=== PATIENT | female | born 1955 | race Caucasian/White ===

== ENCOUNTER 2017-05-20 21:21 | Inpatient (IN) | payer OTHER ==
[~2017-05-20] VITALS: Ht 170.2 cm; Wt 91.0 kg
[~2017-05-20 21:21] MED LIST: ADVAIR 100/501 DISK IH; ADVAIR 250/501 DISK IH; ALEVE220 MG PO; AMBIEN10 M1 PO; AMBIEN10 MG PO; ASPIR-MOX IB T325 MG PO; ASPIRIN325 MG PO; CELEXA20 MG PO; CITALOPRAM HBR20 M1 PO; CONTRAVE ER 8-1 EACH PO; CRESTOR10 MG PO; HYDROCHLOROTHIA25 MG PO; LEVOFLOXACIN500 MG PO; MOEXIPRIL HCL7.5 MG PO; PLAVIX75 MG PO; PREDNISONE20 MG PO; PROAIR RESPICL90 MCG IH; PROVENTIL,2.5 MG/3 M IH; TOPAMAX25 MG PO; TOPROL XL25 MG PO; TOPROL XL50 MG PO; ULTRAM50 MG PO; VENTOLIN HFA18 GM IH; WELCHOL625 MG PO; ZYRTEC10 M3 PO
[2017-05-21] MEDS ORDERED: FEOSOL325 MG PO (05:57)
[2017-05-21] MEDS ORDERED: COLACE100 MG PO (05:58)
[2017-05-21 06:01] VITALS: BP 115/74
[2017-05-21 10:32] VITALS: BP 124/71
[2017-05-21 12:30] VITALS: BP 110/61
[2017-05-21 15:54] VITALS: BP 104/59
[2017-05-21 18:00] VITALS: BP 92/59
[2017-05-21 20:46] VITALS: BP 100/61
[2017-05-22 00:10] VITALS: BP 105/55
[2017-05-22 04:12] VITALS: BP 101/61
[2017-05-22 06:57] LABS: HEMATOCRIT 35.1 % (36.0-46.0); MCV 88.4 FL (83-99)
[2017-05-22 07:28] LABS: ANION GAP 8 MEQ/L (2-14); CHLORIDE 104 MEQ/L (99-109); GFR ESTIMATE (CALCULATED) > 59 mL/min/; GLUCOSE 109 mg/dL (70-99); POTASSIUM 3.8 MEQ/L (3.7-5.4); SAMPLE HEMOLYSIS CHECK 0; SAMPLE ICTERIC CHECK 0; SAMPLE LIPEMIA CHECK 0; SODIUM 139 MEQ/L (136-147); UREA NITROGEN (BUN) 14 mg/dL (9-23)
[2017-05-22 08:17] VITALS: BP 113/72
[2017-05-22] MEDS ORDERED: BENADRYL25 MG PO (09:16)
[2017-05-22] MEDS ORDERED: TYLENOL REGULA325 MG PO (09:18)
[2017-05-22] MEDS ORDERED: ELIQUIS2.5 MG PO (09:19)
[2017-05-22] MEDS ORDERED: BISACODYL5 MG PO (09:19)
[2017-05-22] MEDS ORDERED: OXYCODONE HCL5 MG PO (09:19)
[2017-05-22 12:00] VITALS: BP 107/56
[2017-05-22 15:43] VITALS: BP 100/56
[2017-05-22 20:00] VITALS: BP 114/70
[2017-05-23] VITALS: BP 121/64
[2017-05-23 04:00] VITALS: BP 138/67
[2017-05-23 06:25] LABS: HEMATOCRIT 32.1 % (36.0-46.0); MCV 88.4 FL (83-99)
[2017-05-23 08:24] VITALS: BP 134/72
[2017-05-23 12:00] VITALS: BP 139/64
== END 2017-05-23 14:17 | DRG 470 ==
LOC: ENRESERV 21:21 → 2SOUTH 05-21 05:20 → 3WEST 05-21 10:21 → 2SOUTH 05-21 11:45 → 3WEST 05-23 14:17
PROVIDERS: Orthopaedic Surgery
PROC: 0SRD0J9 Replacement of Left Knee Joint with Synthetic Substitute, Cemented, Open Approach (ICD-10-PCS; principal; 2017-05-21)
DX: M17.12 Unilateral primary osteoarthritis, left knee (principal); M22.42 Chondromalacia patellae, left knee; I10 Essential (primary) hypertension; J45.909 Unspecified asthma, uncomplicated; M47.812 Spondylosis without myelopathy or radiculopathy, cervical region; I69.339 Monoplegia of upper limb following cerebral infarction affecting unspecified side; E78.00 Pure hypercholesterolemia, unspecified; F41.9 Anxiety disorder, unspecified; M76.31 Iliotibial band syndrome, right leg; M70.61 Trochanteric bursitis, right hip; Z87.74 Personal history of (corrected) congenital malformations of heart and circulatory system; Z90.710 Acquired absence of both cervix and uterus; Z91.040 Latex allergy status; Z82.3 Family history of stroke; Z82.49 Family history of ischemic heart disease and other diseases of the circulatory system; Z82.62 Family history of osteoporosis; Z83.3 Family history of diabetes mellitus
CPT/HCPCS: 80048; 85014; 85018; 94640; 94640 76; 99202; C1713; J0131; J0690; J1100; J1170; J1200; J1885; J2250; J2405; J2795; J7050; J7120; Q0175

== ENCOUNTER 2017-06-23 10:10 | Emergency (ER) | payer OTHER ==
[~2017-06-23] VITALS: Ht 170.2 cm; Wt 90.9 kg
[~2017-06-23 10:10] MED LIST changes: +BENADRYL25 MG PO; +BISACODYL5 MG PO; +COLACE100 MG PO; +ELIQUIS2.5 MG PO; +FEOSOL325 MG PO; +OXYCODONE HCL5 MG PO; +TYLENOL REGULA325 MG PO
[2017-06-23 12:08] LABS: HEMATOCRIT 38.1 % (36.0-46.0); MCH 30.3 PG (29.0-34.0); MCHC 34.1 G/DL (30.0-36.0); MCV 88.8 FL (83-99); PLATELET COUNT 147 K/uL (156-360); RBC DIS.WIDTH-CV 13.9 % (11.8-14.6); RBC DIS.WIDTH-SD 44.8 % (39-53); RED BLOOD COUNT 4.29 M/uL (3.80-5.20); WHITE BLOOD COUNT 8.2 K/uL (4.1-10.2)
[2017-06-23 12:19] LABS: CHLORIDE 101 mEq/L (99-109); SODIUM 134 mEq/L (136-147)
[2017-06-23 12:21] LABS: GLUCOSE 96 mg/dL (70-99)
[2017-06-23 12:25] LABS: CREATININE 0.7 mg/dL (0.6-1.3); GFR ESTIMATE (CALCULATED) > 59 mL/min/
[2017-06-23 12:26] LABS: UREA NITROGEN (BUN) 11 mg/dL (9-23)
[2017-06-23] MEDS ORDERED: MUCINEX1200 MG PO (13:56)
[2017-06-23] MEDS ORDERED: CEFTIN500 MG PO (13:56)
[2017-06-23] MEDS ORDERED: ZOFRAN4 MG PO (13:56)
[2017-06-23 14:03] VITALS: BP 133/85
== END 2017-06-23 14:58 | disposition home or self-care (01) ==
LOC: EME 10:10
PROVIDERS: Physician Assistant
DX: J01.90 Acute sinusitis, unspecified (principal); J45.909 Unspecified asthma, uncomplicated; Z87.891 Personal history of nicotine dependence; F32.9 Major depressive disorder, single episode, unspecified; Z86.73 Personal history of transient ischemic attack (TIA), and cerebral infarction without residual deficits; Z96.652 Presence of left artificial knee joint; Z91.040 Latex allergy status; Z88.2 Allergy status to sulfonamides
CPT/HCPCS: 80048; 85027; 99281; 99285; J2405; J7030